=== PATIENT | female | born 1955 ===

== ENCOUNTER 2020-08-30 23:15 | Inpatient (IN) | payer OTHER ==
[~2020-08-30] VITALS: Ht 167.6 cm; Wt 89.8 kg
[2020-08-30] MEDS ORDERED: HYDROCHLOROTHIA25 MG (23:33)
[2020-08-30] MEDS ORDERED: COZAAR100 MG (23:33)
[2020-08-30] MEDS ORDERED: FORTAMET500 MG (23:34)
[2020-08-30] MEDS ORDERED: TRENTAL (23:34)
[2020-08-30] MEDS ORDERED: GLIPIZIDE10 MG (23:34)
[2020-08-30] MEDS ORDERED: ZITHROMAX500 MG (23:35)
[2020-08-30] MEDS ORDERED: G-ZYNCOF 20-40473 ML (23:36)
[2020-08-30] MEDS ORDERED: DECADRON4 MG (23:36)
[2020-09-06] MEDS ORDERED: Proventyl Hfa 200 ME IH (15:23)
== END 2020-09-07 13:27 | disposition home or self-care (01) | DRG 177 ==
LOC: ER 23:15 → MEDJ 08-31 11:31
PROVIDERS: ADMIT Internal Medicine; ATTEND Internal Medicine
PROC: XW033E5 Introduction of Remdesivir Anti-infective into Peripheral Vein, Percutaneous Approach, New Technology Group 5 (ICD-10-PCS; principal; 2020-08-31)
PROC: 4A12X4Z Monitoring of Cardiac Electrical Activity, External Approach (ICD-10-PCS; 2020-08-31)
PROC: 8E0ZXY6 Isolation (ICD-10-PCS; 2020-08-31)
PROC: 3E0F7SF Introduction of Other Gas into Respiratory Tract, Via Natural or Artificial Opening (ICD-10-PCS; 2020-08-31)
PROC: BW24ZZZ Computerized Tomography (CT Scan) of Chest and Abdomen (ICD-10-PCS; 2020-08-31)
DX: U07.1 COVID-19 (principal); J12.82 Pneumonia due to coronavirus disease 2019; J43.9 Emphysema, unspecified; R09.02 Hypoxemia; E11.65 Type 2 diabetes mellitus with hyperglycemia; I10 Essential (primary) hypertension; I73.9 Peripheral vascular disease, unspecified